=== PATIENT | female | born 1965 | race Caucasian/White ===

== ENCOUNTER → 2016-05-25 | Outpatient (CLI) | payer OTHER ==
[2016-05-25 19:50] LABS: Synovial Crystal Source Left Knee
[2016-05-25 20:33] LABS: RBC, Body Fluid 4700 /uL
== END ==
LOC: LABWHC1 15:41
PROVIDERS: ATTEND Physician Assistant
DX: M25.562 Pain in left knee (principal); M22.2X2 Patellofemoral disorders, left knee; M17.12 Unilateral primary osteoarthritis, left knee
CPT/HCPCS: 87070; 87075; 87205; 89050; 89060

== ENCOUNTER 2016-07-12 10:45 | Day surgery (SDC) | payer OTHER ==
[2016-07-10 09:16] VITALS: BMI 26.5
[~2016-07-12 10:45] MED LIST: ACETAMINOPHEN TAB 500 MG TAB PO ONE; DEXAMETHASONE SOD PHOSPHATE 10 MG/ML 1 ML VIAL IV ONE; HYDROmorphone 1 MG/ML 1 ML SYRINGE IVP PRN; LACTATED RINGERS 1,000 ML IV SCH; LIDOCAINE 1% 20 ML VIAL (10MG/ML) FOR IV START INTRADERMA PRN; MELOXICAM 7.5 MG TAB PO ONE; MIDAZOLAM 2 MG/2 ML VIAL IV PRN; ONDANSETRON 4 MG/2 ML VIAL IVP ONE; Pre Op ABX Message 1 EACH MISC MISCELLANE ONE; SCOPOLAMINE 1.5MG/72HR PATCH TRANSDERM ONE
[2016-07-12] MEDS ORDERED: LIDOCAINE 1% 20 ML VIAL (10MG/ML) FOR IV START INTRADERMA ONE (11:22)
[2016-07-12] MEDS ORDERED: LIDOCAINE 1% INJ 10MG/ML (20 ML MDV) ONE (12:57)
[2016-07-12] MEDS ORDERED: MIDAZOLAM 2 MG/2 ML VIAL ONE (12:57)
[2016-07-12] MEDS ORDERED: SUCCINYLCHOLINE CHLORIDE 100 MG/5 ML SYR IV ONE (12:57)
[2016-07-12] MEDS ORDERED: PROPOFOL 10 MG/ML 20 ML VIAL IV ONE (12:57)
[2016-07-12] MEDS ORDERED: KETOROLAC 30 MG/ML 1 ML VIAL ONE (12:57)
[2016-07-12] MEDS ORDERED: fentaNYL (PF) 50 MCG/ML 2 ML AMP ONE (12:57)
[2016-07-12] MEDS ORDERED: BUPIVACAINE (PF) 0.25% 30 ML VIAL INTRAARTIC ONE ×3 (13:21→13:35)
--- NOTE | 2016-07-12 13:57 | P.OP ---
Date of Procedure: 07/12/16 Procedure(s) Performed: PREOPERATIVE DIAGNOSIS: 1. Left knee recurrent effusions 2. Left knee osteoarthritis, patellofemoral POSTOPERATIVE DIAGNOSIS: 1. Left knee lateral meniscal tear, central degenerative 2. Left knee osteoarthritis, patellofemoral, grade 4 3. Left knee osteoarthritis, medial femoral condyle, grade 3 4. Recurrent effusions 5. Intact medial and lateral meniscus and cruciate ligaments PROCEDURES PERFORMED: 1. Left knee arthroscopy, with partial lateral meniscectomy and chondroplasty, patellofemoral and medial compartments 2. Left knee arthroscopic partial synovectomy ANESTHESIA: welfare manager: None COMPLICATIONS: none ESTIMATED BLOOD LOSS: Less than 10 ml DISPOSITION: To post-anesthesia care unit INDICATIONS: Mrs. Norton is a 51-year-old female with a history of left knee pain and chronic swelling. MRI findings are suspicious for osteoarthritis with chondral defects involving the patella and medial compartments but no evidence of definite meniscus tear. Patient presents to the operating room today for arthroscopy with evaluation of osteoarthritis as well as chondroplasty or smoothing of the articular surfaces. I have explained the procedure in detail as well as potential risks and complications as being inclusive of but not limited to: Bleeding, infection, scarring, discomfort, blood vessel and/or nerve damage, failure to relieve symptoms, persistence or recurrence and/or worsening of symptoms, blood clot, pulmonary embolism, limp, , and other risks, including the need for knee replacement. The consent form has been signed. PROCEDURE: After appropriate consent was obtained, the patient was taken to the operating room and placed supine on the operating table. General anesthesia was initiated. The knee was examined under anesthesia. Medial collateral, lateral collateral, anterior and posterior cruciate ligaments were all intact. Range of motion was 0 to 1:30 with mild crepitus in the patellofemoral compartment. Mild effusion but no soft tissue swelling was noted. Prepping and draping of the operative knee was performed in the usual sterile fashion using ChloraPrep. Care was taken that all pressure points were adequately padded. Leg grover and pneumotourniquet were used. ``Time-out" was called according to [employer] standards, confirming patient identity, surgical procedure, side, and no antibiotics were administered. The surgical portals were placed directly next to the patellar tendon medially and laterally. Camera and instruments were carefully inserted into the knee and arthroscopy was performed. Patellofemoral joint was first inspected. Mild synovitis was seen, and was resected where it appeared particularly inflamed. Patellofemoral joint was noted to be arthritic, with grade 4 changes present over 75 %. Corresponding changes were noted in the trochlear area especially on the lateral side. Chondroplasty was performed using a shaver and radiofrequency probe, removing unstable cartilage elements and smoothing the surface to eliminate step-off. Lateral compartment showed fairly normal hyaline cartilage without significant defect. Lateral meniscus was visualized and probed, the central mid zone showing some mild degenerative fraying which was removed with a shaver. Popliteal hiatus was normal. No loose bodies. Medial compartment was then examined. Meniscus was normal . Medial compartment hyaline cartilage showed grade 3 osteoarthritic change along with peripheral unstable cartilage which was smoothed with a combination of shaver and radiofrequency. Cruciate ligaments were noted to be intact. No loose bodies or ganglion cysts were noted around the cruciate ligaments. Medial and lateral gutters showed no evidence of loose bodies, but some mild synovitis was present and was resected with a shaver. Portals were then closed with 4-0 Monocryl suture. A quantity of Marcaine solution was injected into the knee and around the portal sites. Steri-Strips were applied and tourniquet was deflated. Sterile dressing and light compressive dressing was applied using Webril and JOHNSON wrap. Patient tolerated the procedure well and taken to recovery room in stable condition. Sponge and needle counts were correct.
[2016-07-12 14:06] VITALS: TEMP 96.8
[2016-07-12 14:54] VITALS: RESP 18
[2016-07-12 15:12] VITALS: BP 139/76; PULSE 64
== END 2016-07-12 15:34 | disposition home or self-care (01) ==
LOC: OR 10:45
PROVIDERS: ATTEND Orthopaedic Surgery
DX: S83.282A Other tear of lateral meniscus, current injury, left knee, initial encounter (principal); X58.XXXA Exposure to other specified factors, initial encounter; M17.12 Unilateral primary osteoarthritis, left knee; I10 Essential (primary) hypertension; E78.5 Hyperlipidemia, unspecified; F32.9 Major depressive disorder, single episode, unspecified; M79.7 Fibromyalgia; F43.10 Post-traumatic stress disorder, unspecified; Z79.899 Other long term (current) drug therapy; F17.210 Nicotine dependence, cigarettes, uncomplicated; Z88.2 Allergy status to sulfonamides
CPT/HCPCS: 29881; J2250; J1100; J2405; J2001; J3010; J1885; J0330; J2704

== ENCOUNTER → 2018-01-07 | Outpatient (CLI) | payer MEDICARE, OTHER ==
--- NOTE | 2018-01-24 09:51 | EM ---
EVENT MONITOR DATE OF SERVICE: January 07, 2018. REFERRING PHYSICIAN: Dr. Clark. INDICATION: Palpitations. DESCRIPTION OF PROCEDURE: The patient was monitored for 14 days. The baseline rhythm appeared to be a sinus mechanism. The patient did have multiple episodes of sinus tachycardia with heart rate around 120 and 130 beats per minute. Also, the patient did have multiple episodes of paroxysmal atrial tachycardia. No advanced AV block seen. No sinus pause or sinus arrest seen. CONCLUSION: 1. This is a 14 day event monitor. 2. Sinus rhythm as a baseline rhythm. 3. The patient did have multiple episodes of sinus tachycardia. 4. Multiple episodes of paroxysmal atrial tachycardia. 5. No advanced AV block seen. 6. No sinus pause or sinus arrest. 7. The patient reported no symptoms. MMODL / IJN: [id number] /
== END | disposition home or self-care (01) ==
LOC: RADECHMAIN 11:46
PROVIDERS: ATTEND Internal Medicine
DX: I47.1 Supraventricular tachycardia (principal)
CPT/HCPCS: 93270; 93271